=== PATIENT | female | born 1960 | race Caucasian/White ===

== ENCOUNTER 2021-06-05 06:13 | Day surgery (SDC) | payer OTHER, MEDICAID ==
[~2021-06-05] VITALS: Ht 162.6 cm; Wt 78.5 kg
[~2021-06-05 06:13] MED LIST: ALBUAER3 IN; AMIT25TA12 PO; ASPI1TAB19 PO; B-CO-15 PO; BACL10TA PO; BECL40AE11 IN; BISA-65 PO; CARB0.5D8 EACHEYE; CYCL0.05 EACHEYE; DICL50TA2 PO; EREN140I SC; FENO50CA2 PO; GEMF-19 PO; HYDR25TA4 PO; INSREG3 SC; ISOS1TAB28 PO; LOSA-69 PO; MAGN400T40 PO; MELO1TAB73 PO; METO25TA5 PO; MULT50TA PO; NAPR375T27 PO; NITR0.4S29 SL; OMEP-434 PO; PET35OO EACHEYE; POTA-180 PO; PRAV20TA3 PO; RIME75TA PO; TRAM50TA2 PO; TRIA37.56 PO; VERA240C2 PO; [UNRECOGNIZED DRUG - CODE] EACHEYE
[2021-06-05] MEDS ORDERED: LIDOCAINE 2%HCL (LOCAL ANESTH.) INJ 10ml MDV ONE (07:39)
[2021-06-05] MEDS ORDERED: IODIXANOL 320MG/ML 100ML BTL IV ONE (07:39)
[2021-06-05] MEDS ORDERED: fentaNYL CITRATE 100 MCG/2 ML VL ONE (07:53)
[2021-06-05] MEDS ORDERED: ANGIOMAX 250 MG VIAL IV ONE (07:53)
[2021-06-05] MEDS ORDERED: HEPARIN SODIUM (PORCINE) 5000 UNITS/ML 1ML VIAL ONE (07:53)
[2021-06-05] MEDS ORDERED: VERAPAMIL 2.5MG/ML INJ 2ML VIAL IV ONE (07:53)
[2021-06-05] MEDS ORDERED: MIDAZOLAM HCL 2MG/2ML 2ml VIAL (1mg/ml) ONE (07:54)
[2021-06-05] MEDS ORDERED: SODIUM CHL 0.9% 0 ML ONE (07:54)
== END 2021-06-05 10:53 | disposition home or self-care (01) ==
LOC: CATH 06:13
PROVIDERS: ATTEND Internal Medicine Cardiovascular Disease
DX: R94.39 Abnormal result of other cardiovascular function study (principal); I10 Essential (primary) hypertension; E78.5 Hyperlipidemia, unspecified; E11.9 Type 2 diabetes mellitus without complications; G43.909 Migraine, unspecified, not intractable, without status migrainosus; Z98.890 Other specified postprocedural states; Z90.49 Acquired absence of other specified parts of digestive tract; Z88.5 Allergy status to narcotic agent; Z88.8 Allergy status to other drugs, medicaments and biological substances; Z79.82 Long term (current) use of aspirin; Z79.4 Long term (current) use of insulin; Z79.899 Other long term (current) drug therapy; Z86.73 Personal history of transient ischemic attack (TIA), and cerebral infarction without residual deficits; Z20.822 Contact with and (suspected) exposure to COVID-19
CPT/HCPCS: 93458; C1887; C1894; J1644; J2001; J2250; J3010; J7030; Q9967; U0003; 99152

== ENCOUNTER 2022-04-04 11:29 | Inpatient (IN) | payer MEDICAID, OTHER ==
[~2022-04-04] VITALS: Ht 162.6 cm; Wt 70.1 kg
[2022-04-04] MEDS ORDERED: ASPirin 81 mg TAB PO ONE (11:45)
[2022-04-04 12:00] LABS: Hematocrit 18.7 % (36.0-46.0)
[2022-04-04 12:02] LABS: Mean Corpuscular Hemoglobin 32.7 pg (28.0-32.0); Mean Corpuscular Hgb Conc. 33.2 g/dL (32.0-36.0); Mean Corpuscular Volume 98.5 fL (80.0-100.0); Red Blood Cells 1.89 10^6/uL (4.0-5.20); Red Cell Distribution Width 19.7 % (11.8-14.3)
[2022-04-04 12:16] LABS: INR 1.26 (0.9-1.15); Partial Thromboplastin Time 32.4 sec (24.6-33.4)
[2022-04-04 12:32] LABS: Albumin 2.1 g/dL (3.4-5.0); Calcium 7.6 mg/dL (8.5-10.1); Magnesium 2.5 mg/dL (1.6-2.6); Potassium 3.1 mmol/L (3.5-5.1)
[2022-04-04 12:36] LABS: BUN/Creatinine Ratio 16.4; Bilirubin, Total 0.5 mg/dL (0.2-1.0)
[2022-04-04 12:41] LABS: Hemoglobin 6.2 g/dL (12.2-16.2); White Blood Cell 36.2 10^3/uL (4.4-10.8)
[2022-04-04 12:43] LABS: Basophils % (manual) 0 (0.0-2.0); Promyelocytes % 0; Reactive Lymphocytes 0
[2022-04-04] MEDS ORDERED: VANCOMYCIN PER PHARMACY 0 MG IV SCH (14:45)
[2022-04-04] MEDS ORDERED: VANCOMYCIN 1GM/250ML 250 ML IV ONE (14:45)
[2022-04-04] MEDS ORDERED: CEFEPIME 2 GM in SODIUM CHL 0.9% 50 ML IV ONE (14:45)
[2022-04-04 14:48] LABS: Urine Bacteria MANY /hpf (None Seen); Urine Blood Negative /uL (Negative); Urine Hyaline Cast FEW /lpf (0 - 2); Urine Specific Gravity 1.009 (1.001-1.035); Urine WBC 5 /hpf (0 - 5)
[2022-04-04 15:19] LABS: Band Neutrophils % (manual) 28; Blast Cells 2; Eosinophils % (manual) 2 (0-7); Lymphocytes % (manual) 28 (10.0-50.0); Metamyelocytes % 5; Monocytes % (manual) 2 (0-12); Myelocytes % 10
[2022-04-04] MEDS ORDERED: IOHEXOL 350 MG/ML 100ML IJ ONE (15:57)
[2022-04-04 16:17] LABS: % Iron Saturation 26.7 % (15-50)
[2022-04-04] MEDS: POTASSIUM CHL 20MEQ/100ML 100 ML IV SCH ×2 (16:27→18:17)
[2022-04-04 16:33] LABS: Folate (Folic Acid) 8.47 ng/mL (5.38-24)
[2022-04-05] VITALS (16 sets, daily range): BP systolic 97–140; BP diastolic 33–79
[2022-04-05] MEDS: traMADol HCL 50 MG TAB PO PRN (00:33)
[2022-04-05] MEDS: guaiFENesin-DM 100/10mg/5ml SYR PO PRN (00:33)
[2022-04-05] MEDS: CEFEPIME 1GM/ 50ML 50 ML IV SCH ×4 (00:37→22:08)
[2022-04-05] MEDS ORDERED: DEXTROSE (50%) 50ML SYRG IV PRN (02:30)
[2022-04-05] MEDS ORDERED: ONDANSETRON HCL 4 MG/2 ML VIAL IV PRN (02:30)
[2022-04-05] MEDS ORDERED: MELATONIN 5 MG TAB PO PRN (02:30)
[2022-04-05] MEDS: VANCOMYCIN 1GM/250ML 250 ML IV SCH ×2 (03:58→16:03)
[2022-04-05 06:20] LABS: Calcium 6.9 mg/dL (8.5-10.1); Potassium 3.2 mmol/L (3.5-5.1)
[2022-04-05] MEDS: ACCU-CHEK COMFORT CURVE STRIP VI SCH ×4 (06:25→22:17)
[2022-04-05] MEDS: InsuLIN REG 1unit/0.01ml Soln (100units/ml) SC SCH ×4 (06:37→22:24)
[2022-04-05 08:55] LABS: Hematocrit 21.5 % (36.0-46.0); Mean Corpuscular Hemoglobin 31.1 pg (28.0-32.0); Mean Corpuscular Hgb Conc. 32.1 g/dL (32.0-36.0); Mean Corpuscular Volume 97.1 fL (80.0-100.0); Red Blood Cells 2.21 10^6/uL (4.0-5.20)
[2022-04-05 09:00] LABS: Red Cell Distribution Width 21.3 % (11.8-14.3); White Blood Cell 30.1 10^3/uL (4.4-10.8)
[2022-04-05 09:03] LABS: Hemoglobin 6.9 g/dL (12.2-16.2)
[2022-04-05 09:11] LABS: Basophils % (manual) 0 (0.0-2.0); Eosinophils % (manual) 0 (0-7); Promyelocytes % 0; Reactive Lymphocytes 0
[2022-04-05] MEDS: AZITHROMYCIN 500MG/ 250ML 250 ML IV SCH (10:00)
[2022-04-05] MEDS ORDERED: SODIUM FERR GLUC 62.5MG/5ML 125 MG in SODIUM CHL 0.9% 100 ML IV ONE ×2 (10:15→11:40)
[2022-04-05 10:37] LABS: Band Neutrophils % (manual) 20; Blast Cells 3; Lymphocytes % (manual) 22 (10.0-50.0); Metamyelocytes % 2; Monocytes % (manual) 12 (0-12); Myelocytes % 9
[2022-04-05] MEDS: FERROUS SULFATE 325mg EC TAB PO SCH ×2 (12:00→17:57)
[2022-04-05] MEDS ORDERED: ALBUTEROL MEDNEB 2.5 mg/3ml NEB ONE ×3 (14:13→22:59)
[2022-04-05] MEDS: ALBUTEROL SULF 2.5 MG/0.5ML(0.5%) NEB SOLN NEB SCH ×3 (16:12→23:01)
[2022-04-05] MEDS ORDERED: IPRATROPIUM BROM 0.5 MG/2.5ML INH SOL ONE (18:25)
[2022-04-05] MEDS: DOCUSATE SOD 100 MG CAP PO SCH (22:07)
[2022-04-06] VITALS (8 sets, daily range): BP systolic 101–129; BP diastolic 52–73
[2022-04-06] MEDS: VANCOMYCIN 1GM/250ML 250 ML IV SCH ×3 (03:30→23:15)
[2022-04-06] MEDS ORDERED: ALBUTEROL MEDNEB 2.5 mg/3ml NEB ONE ×3 (05:53→18:18)
[2022-04-06] MEDS: ALBUTEROL SULF 2.5 MG/0.5ML(0.5%) NEB SOLN NEB SCH ×2 (05:57→19:01)
[2022-04-06] MEDS: CEFEPIME 1GM/ 50ML 50 ML IV SCH ×3 (06:28→22:48)
[2022-04-06] MEDS: ACCU-CHEK COMFORT CURVE STRIP VI SCH ×4 (06:39→22:00)
[2022-04-06] MEDS: InsuLIN REG 1unit/0.01ml Soln (100units/ml) SC SCH ×4 (06:41→22:51)
[2022-04-06 06:44] LABS: Calcium 7.4 mg/dL (8.5-10.1)
[2022-04-06 07:04] LABS: Potassium 2.9 mmol/L (3.5-5.1)
[2022-04-06 07:07] LABS: Hematocrit 27.7 % (36.0-46.0); Hemoglobin 9.3 g/dL (12.2-16.2); Mean Corpuscular Hemoglobin 31.1 pg (28.0-32.0); Mean Corpuscular Hgb Conc. 33.5 g/dL (32.0-36.0); Mean Corpuscular Volume 92.9 fL (80.0-100.0); Red Blood Cells 2.98 10^6/uL (4.0-5.20); Red Cell Distribution Width 18.1 % (11.8-14.3); White Blood Cell 24.6 10^3/uL (4.4-10.8)
[2022-04-06 07:09] LABS: Basophils % (manual) 0 (0.0-2.0); Eosinophils % (manual) 0 (0-7); Promyelocytes % 0; Reactive Lymphocytes 0
[2022-04-06] MEDS ORDERED: cefTRIAXone 1GM/50ML D5W 50 ML IV SCH (09:00)
[2022-04-06] MEDS: DOCUSATE SOD 100 MG CAP PO SCH ×2 (09:17→22:48)
[2022-04-06] MEDS: FERROUS SULFATE 325mg EC TAB PO SCH ×3 (09:17→16:38)
[2022-04-06] MEDS: AZITHROMYCIN 500MG/ 250ML 250 ML IV SCH (09:17)
[2022-04-06] MEDS ORDERED: POTASSIUM CHL 20 Meq TABLET PO ONE (12:30)
[2022-04-06 12:51] LABS: Band Neutrophils % (manual) 24; Blast Cells 2; Lymphocytes % (manual) 17 (10.0-50.0); Metamyelocytes % 2; Monocytes % (manual) 13 (0-12); Myelocytes % 12
[2022-04-06] MEDS: POTASSIUM CHL 20MEQ/100ML 100 ML IV SCH ×2 (13:12→16:15)
[2022-04-06] MEDS: methylPREDNISolone SOD SUCC 40 MG/ML VL IV SCH ×2 (14:18→22:47)
[2022-04-06] MEDS: guaiFENesin-DM 100/10mg/5ml SYR PO PRN (16:18)
[2022-04-06] MEDS: traMADol HCL 50 MG TAB PO PRN (16:38)
[2022-04-06 18:31] LABS: BUN/Creatinine Ratio 8.7; Calcium 8.3 mg/dL (8.5-10.1); Potassium 3.8 mmol/L (3.5-5.1)
[2022-04-07 05:00] VITALS: BP 107/64
[2022-04-07] MEDS: methylPREDNISolone SOD SUCC 40 MG/ML VL IV SCH ×3 (05:44→21:31)
[2022-04-07] MEDS: CEFEPIME 1GM/ 50ML 50 ML IV SCH ×3 (05:45→21:31)
[2022-04-07 05:53] LABS: Hematocrit 28.9 % (36.0-46.0); Hemoglobin 9.3 g/dL (12.2-16.2); Mean Corpuscular Hemoglobin 30.8 pg (28.0-32.0); Mean Corpuscular Hgb Conc. 32.2 g/dL (32.0-36.0); Mean Corpuscular Volume 95.7 fL (80.0-100.0); Red Blood Cells 3.02 10^6/uL (4.0-5.20); Red Cell Distribution Width 19.7 % (11.8-14.3)
[2022-04-07] MEDS ORDERED: ALBUTEROL MEDNEB 2.5 mg/3ml NEB ONE ×3 (05:58→18:13)
[2022-04-07 06:05] LABS: Basophils % (manual) 0 (0.0-2.0); Eosinophils % (manual) 0 (0-7); Metamyelocytes % 0; Promyelocytes % 0; Reactive Lymphocytes 0
[2022-04-07 06:17] LABS: BUN/Creatinine Ratio 22.2; Calcium 7.9 mg/dL (8.5-10.1); Potassium 4.5 mmol/L (3.5-5.1)
[2022-04-07] MEDS: ACCU-CHEK COMFORT CURVE STRIP VI SCH ×4 (06:25→21:32)
[2022-04-07] MEDS: ALBUTEROL SULF 2.5 MG/0.5ML(0.5%) NEB SOLN NEB SCH ×4 (06:33→19:17)
[2022-04-07] MEDS: InsuLIN REG 1unit/0.01ml Soln (100units/ml) SC SCH ×4 (06:34→21:39)
[2022-04-07] MEDS: DOCUSATE SOD 100 MG CAP PO SCH ×2 (08:32→21:32)
[2022-04-07] MEDS: FERROUS SULFATE 325mg EC TAB PO SCH ×3 (08:32→17:32)
[2022-04-07] MEDS: VANCOMYCIN 1GM/250ML 250 ML IV SCH (08:32)
[2022-04-07 08:37] LABS: Lymphocytes % (manual) 13 (10.0-50.0); Monocytes % (manual) 7 (0-12); Myelocytes % 4
[2022-04-07 08:38] LABS: Band Neutrophils % (manual) 20; Blast Cells 6
[2022-04-07 08:39] VITALS: BP 107/61
[2022-04-07 13:00] VITALS: BP 112/60
[2022-04-07 17:00] VITALS: BP 136/79
[2022-04-07 22:00] VITALS: BP 118/67
[2022-04-08] MEDS: ALBUTEROL SULF 2.5 MG/0.5ML(0.5%) NEB SOLN NEB SCH ×4 (00:39→20:16)
[2022-04-08 05:00] VITALS: BP 132/75
[2022-04-08] MEDS: methylPREDNISolone SOD SUCC 40 MG/ML VL IV SCH ×2 (05:03→21:33)
[2022-04-08] MEDS: ACCU-CHEK COMFORT CURVE STRIP VI SCH ×4 (05:39→21:43)
[2022-04-08] MEDS: CEFEPIME 1GM/ 50ML 50 ML IV SCH ×3 (05:39→21:43)
[2022-04-08] MEDS ORDERED: ALBUTEROL MEDNEB 2.5 mg/3ml NEB ONE ×4 (06:05→23:59)
[2022-04-08 06:20] LABS: Calcium 8.2 mg/dL (8.5-10.1); Potassium 4.5 mmol/L (3.5-5.1); Red Blood Cells 3.22 10^6/uL (4.0-5.20)
[2022-04-08 06:23] LABS: BUN/Creatinine Ratio 35.3; Hematocrit 31.2 % (36.0-46.0); Mean Corpuscular Hemoglobin 31.2 pg (28.0-32.0); Mean Corpuscular Hgb Conc. 32.1 g/dL (32.0-36.0); Mean Corpuscular Volume 97.1 fL (80.0-100.0); Red Cell Distribution Width 19.6 % (11.8-14.3)
[2022-04-08] MEDS: InsuLIN REG 1unit/0.01ml Soln (100units/ml) SC SCH ×4 (06:24→21:48)
[2022-04-08 06:47] LABS: White Blood Cell 32.6 10^3/uL (4.4-10.8)
[2022-04-08 06:49] LABS: Basophils % (manual) 0 (0.0-2.0); Eosinophils % (manual) 0 (0-7)
[2022-04-08 08:07] LABS: Band Neutrophils % (manual) 12; Blast Cells 3; Lymphocytes % (manual) 4 (10.0-50.0); Metamyelocytes % 6; Monocytes % (manual) 7 (0-12); Myelocytes % 15; Promyelocytes % 1; Reactive Lymphocytes 1
[2022-04-08 09:00] VITALS: BP 138/76
[2022-04-08] MEDS: traMADol HCL 50 MG TAB PO PRN (09:17)
[2022-04-08] MEDS: FERROUS SULFATE 325mg EC TAB PO SCH ×3 (09:17→18:48)
[2022-04-08] MEDS: guaiFENesin-DM 100/10mg/5ml SYR PO PRN (09:18)
[2022-04-08] MEDS: DOCUSATE SOD 100 MG CAP PO SCH ×2 (10:00→21:33)
[2022-04-08] MEDS ORDERED: fentaNYL CITRATE 100 MCG/2 ML VL IV ONE (10:15)
[2022-04-08] MEDS ORDERED: MIDAZOLAM HCL 2MG/2ML 2ml VIAL (1mg/ml) IV ONE (10:15)
[2022-04-08 13:00] VITALS: BP 121/66
[2022-04-08 17:00] VITALS: BP 114/61
[2022-04-08 21:36] VITALS: BP 114/61
[2022-04-08 22:00] VITALS: BP 133/58
[2022-04-09] MEDS: ALBUTEROL SULF 2.5 MG/0.5ML(0.5%) NEB SOLN NEB SCH ×4 (00:06→19:25)
[2022-04-09 05:00] VITALS: BP 135/64
[2022-04-09] MEDS: ACCU-CHEK COMFORT CURVE STRIP VI SCH ×3 (05:40→17:00)
[2022-04-09] MEDS: CEFEPIME 1GM/ 50ML 50 ML IV SCH ×2 (05:50→13:07)
[2022-04-09] MEDS ORDERED: ALBUTEROL MEDNEB 2.5 mg/3ml NEB ONE ×2 (05:53→11:32)
[2022-04-09] MEDS: InsuLIN REG 1unit/0.01ml Soln (100units/ml) SC SCH ×3 (05:54→17:00)
[2022-04-09 06:03] LABS: Hematocrit 29.8 % (36.0-46.0); Hemoglobin 9.8 g/dL (12.2-16.2); Mean Corpuscular Hemoglobin 31.2 pg (28.0-32.0); Mean Corpuscular Hgb Conc. 32.7 g/dL (32.0-36.0); Mean Corpuscular Volume 95.3 fL (80.0-100.0); Red Blood Cells 3.13 10^6/uL (4.0-5.20); Red Cell Distribution Width 18.8 % (11.8-14.3); White Blood Cell 22.4 10^3/uL (4.4-10.8)
[2022-04-09 06:06] LABS: Basophils % (manual) 0 (0.0-2.0); Blast Cells 0; Eosinophils % (manual) 0 (0-7); Metamyelocytes % 0; Promyelocytes % 0
[2022-04-09 06:14] LABS: Calcium 7.9 mg/dL (8.5-10.1); Potassium 4.4 mmol/L (3.5-5.1)
[2022-04-09 07:51] LABS: Band Neutrophils % (manual) 3; Lymphocytes % (manual) 22 (10.0-50.0); Monocytes % (manual) 39 (0-12); Myelocytes % 4; Reactive Lymphocytes 1
[2022-04-09] MEDS: FERROUS SULFATE 325mg EC TAB PO SCH ×3 (07:53→17:56)
[2022-04-09] MEDS: traMADol HCL 50 MG TAB PO PRN (07:54)
[2022-04-09 09:00] VITALS: BP 151/74
[2022-04-09] MEDS: methylPREDNISolone SOD SUCC 40 MG/ML VL IV SCH (09:51)
[2022-04-09] MEDS: DOCUSATE SOD 100 MG CAP PO SCH (09:51)
[2022-04-09 13:00] VITALS: BP 151/73
[2022-04-09 17:00] VITALS: BP 165/91
[2022-04-09] MEDS ORDERED: DOXY-332 PO (18:06)
[2022-04-10] MEDS ORDERED: Pro-Stat SF 30ml Vanilla PO SCH (10:00)
== END 2022-04-09 21:23 | disposition home health service (06) | DRG 133 ==
LOC: ER 11:29 → TELE 18:10 → TELE-EAST 22:01
PROVIDERS: ADMIT Internal Medicine; ATTEND Internal Medicine
PROC: 30233N1 Transfusion of Nonautologous Red Blood Cells into Peripheral Vein, Percutaneous Approach (ICD-10-PCS; principal; 2022-04-05)
PROC: 05H933Z Insertion of Infusion Device into Right Brachial Vein, Percutaneous Approach (ICD-10-PCS; 2022-04-08)
PROC: B54MZZA Ultrasonography of Right Upper Extremity Veins, Guidance (ICD-10-PCS; 2022-04-08)
PROC: 07DR3ZX Extraction of Iliac Bone Marrow, Percutaneous Approach, Diagnostic (ICD-10-PCS; 2022-04-08)
DX: J96.21 Acute and chronic respiratory failure with hypoxia (principal); J18.9 Pneumonia, unspecified organism; D69.6 Thrombocytopenia, unspecified; E87.1 Hypo-osmolality and hyponatremia; J44.0 Chronic obstructive pulmonary disease with (acute) lower respiratory infection; I11.0 Hypertensive heart disease with heart failure; E87.8 Other disorders of electrolyte and fluid balance, not elsewhere classified; Z20.822 Contact with and (suspected) exposure to COVID-19; D64.9 Anemia, unspecified; I25.10 Atherosclerotic heart disease of native coronary artery without angina pectoris; E78.00 Pure hypercholesterolemia, unspecified; E11.65 Type 2 diabetes mellitus with hyperglycemia; E87.6 Hypokalemia; J44.1 Chronic obstructive pulmonary disease with (acute) exacerbation; J98.11 Atelectasis; Z88.5 Allergy status to narcotic agent; Z88.8 Allergy status to other drugs, medicaments and biological substances; Z99.81 Dependence on supplemental oxygen; Z99.3 Dependence on wheelchair; Z90.710 Acquired absence of both cervix and uterus; Z90.49 Acquired absence of other specified parts of digestive tract; Z83.3 Family history of diabetes mellitus; Z86.73 Personal history of transient ischemic attack (TIA), and cerebral infarction without residual deficits; Z79.4 Long term (current) use of insulin; Z79.82 Long term (current) use of aspirin; Z82.49 Family history of ischemic heart disease and other diseases of the circulatory system; I25.2 Old myocardial infarction
CPT/HCPCS: 10005; 36415; 71045; 71275; 72192; 77012; 80048; 80053; 80202; 81001; 82270; 82607; 82746; 82962; 83540; 83550; 83605; 83615; 83735; 83880; 84484; 85007; 85025; 85027; 85045; 85379; 85610; 85730; 86606; 86612; 86635; 86698; 86850; 86880; 86900; 86901; 86920; 87040; 87070; 87077; 87081; 87205; 87278; 87426; 93005; 93970; 94640; 96365; 96366; 96367; 96368; 97110; 97116; 97163; 97530; 99291; G0378; J1815; J2250; J2405; J3480